=== PATIENT | male | born 1965 | race Caucasian/White ===

== ENCOUNTER → 2017-11-24 | Outpatient (REF) ==
[~2017-11-24] MED LIST: NO HOME MEDICATIONS; NORCO 325 MG-51 TAB PO
== END ==
LOC: ZLAB.WCH 08:55
DX: Z01.89 Encounter for other specified special examinations (principal)

== ENCOUNTER → 2021-10-05 | Outpatient (CLI) | payer OTHER | LOC: COL.RAD 09:55 | DX: M25.512 Pain in left shoulder (principal); M47.816 Spondylosis without myelopathy or radiculopathy, lumbar region ==

== ENCOUNTER 2023-12-14 14:57 | Inpatient (IN) | payer MEDICAID ==
[~2023-12-14] VITALS: Ht 167.6 cm; Wt 107.5 kg
[2023-12-14 17:00] VITALS: BP_SYST 137
[2023-12-14] MEDS ORDERED: NORVASC2.5 MG PO (17:18)
[2023-12-14] MEDS ORDERED: ZESTRIL 20MG TA20 MG PO (17:19)
[2023-12-14] MEDS ORDERED: LIPITOR20 MG PO (17:19)
[2023-12-14] MEDS ORDERED: LOPRESSOR 225 MG/TAB PO (17:20)
[2023-12-14] MEDS ORDERED: HCTZ12.5TAB PO (17:20)
[2023-12-14] MEDS ORDERED: TYLENOL 500MG500 MG PO (17:21)
[2023-12-14 17:30] VITALS: BP 137/69; PULSE 92; TEMP 98.2
--- NOTE | 2023-12-14 17:53 | NUR ---
PT PRESENTS FROM [facility] FOR MULTIPLE BILATERAL LEG WOUNDS AND SEPSIS. BILATERAL LOWER EXTREMETIES ARE RED AND HAVE +3 PITTING EDEMA FROM THE FEET TO THE KNEES. THE RT FOOT HAS MULTIPLE BIG BLISTERERS- GREAT TOE HAS LARGE RUPTURED WHEEPING BLISTER, 2ND TOE HAS RUPTURED WHEEPING BLISTER. LT FOOT- GREAT TOE IS BLUE/PURPLE W/ GROSS SWELLING AND BLISTER, 2ND&3RD TOES HAVE BLISTERS ENGULFING THE TOES, LARGE BLISTER BELOW 3RD&4TH TOES. REDNESS TO TOPS OF BILATERAL FT. RT DORSAL CALF- LARGELY COVERED W/ PURPLE/BLACK AREA THAT HAS RED OPEN WHEEPING EDGES AND SCATTERED BLISTERS AROUND THE OUTSIDE. RASH PRESENT TO BILATERAL ARMPITS BOTTOM IS INTACT BUT REDDEDNED TO BILATERAL BUTTOCKS
[2023-12-14 19:03] VITALS: BP 111/75; PULSE 129; TEMP 101
[2023-12-14] MEDS ORDERED: Ondansetron 4 MG/2 ML VIAL IV PRN (19:15)
[2023-12-14] MEDS ORDERED: hydrALAZINE 20 MG/ML 1 ML VIAL IV PRN (19:15)
[2023-12-14] MEDS ORDERED: NS 1,000 ML IV SCH (19:15)
[2023-12-14] MEDS ORDERED: Acetaminophen 500 MG TAB PO PRN (19:15)
[2023-12-14] MEDS ORDERED: Heparin 5,000 UNITS/ML 1 ML VIAL SQ SCH (19:22)
[2023-12-14] MEDS ORDERED: Nicotine 21 MG DAILY PATCH TD SCH (19:23)
[2023-12-14] MEDS ORDERED: Vancomycin 1.5 GM,Special Dose/Pharmacy Prepared 1.5 GM in NS 250 ML IV SCH (20:00)
[2023-12-14] MEDS ORDERED: cefTRIAXone 2 G in Water For Injection,Sterile 20 ML IV SCH (20:00)
[2023-12-14] MEDS ORDERED: oxyCODONE 5 MG TAB PO PRN (20:15)
[2023-12-14 20:54] LABS: BASO % 0.2 % (0.0-2.0); EOS % 0.1 % (0.0-4.0); GRAN # 13.9 K/mm3 (1.4-6.5); GRAN % 84.7 % (42.2-75.2); HEMOGLOBIN 11.5 g/dl (13.5-18.0); LYMPH # 0.9 K/mm3 (1.2-3.4); LYMPH % 5.7 % (20.0-51.0); MEAN CELL VOLUME 92 fl (80.0-100.0); MEAN CORPUSCULAR HEMOGLOBIN 31 pg (27-31); MEAN CORPUSCULAR HGB CONC 34 g/dl (33.0-37.0); MEAN PLATELET VOLUME 9.1 fl (7.4-10.4); MONO # 1.4 K/mm3 (0.1-0.6); MONO % 8.7 % (1.7-9.3); PLATELET COUNT 400 K/mm3 (130-400); REDCELL DISTRIBUTION WIDTH-CV 14.3 % (11.5-14.5)
[2023-12-14 21:00] VITALS: BP_SYST 111
[2023-12-14] MEDS ORDERED: Melatonin 3 MG TAB PO SCH (21:00)
[2023-12-14 21:17] LABS: ALBUMIN 2.4 gm/dL (3.5-5.0); BILIRUBIN,TOTAL 0.6 mg/dL (0.2-1.2); C-REACTIVE PROTEIN 23.12 mg/dL (0.00-0.50); CALCIUM 9.3 mg/dL (8.4-10.2); CREATININE, serum 1.96 mg/dL (0.72-1.25); PHOSPHOROUS 1.9 mg/dL (2.3-4.7); POTASSIUM 4.1 mmol/L (3.5-4.5); TOTAL PROTEIN 6.6 gm/dL (6.2-8.1)
[2023-12-14 21:26] LABS: HEMATOCRIT 34.1 % (42.0-52.0)
[2023-12-14 23:30] VITALS: BP 91/59; PULSE 125; TEMP 100.9
[2023-12-14 23:59] VITALS: BP 100/59; PULSE 122; TEMP 99.2
[2023-12-15] VITALS (12 sets, daily range): BP systolic 100–149; BP diastolic 61–88; PULSE 94–119; TEMP 98–99
--- NOTE | 2023-12-15 04:22 | NUR ---
NURSING SHIFT ASSESSMENT COMPLETED. THE PATIENT WAS ALERT AND ORIENTED UPON ASSESSMENT. THE PATIENT HAS BILATERAL LE EDEMA, WITH DARK PURPLE IN COLOR BLISTERS. FEET INCLUDED. RIGHT POSTERIOR CALF IS MISSING THE TOP LAYER OF SKIN PER THE PATIENT A LARGE BLISTER WAS THERE, BUT THE PATIENT PULLED OFF THE SKIN AFTER THE GIANT BLISTER OPENED UP. THE PLAN OF CARE AND EVENING MEDICATIONS TO INCLUDE ANTIBIOTICS WERE REVIEWED. QUESTIONS AND CONCERNS WERE ADDRESSED. CALL LIGHT AND PERSONAL BELONGINGS WITHIN REACH.
[2023-12-15 07:54] LABS: ALBUMIN 2.3 gm/dL (3.5-5.0); BILIRUBIN,TOTAL 0.6 mg/dL (0.2-1.2); CALCIUM 9.1 mg/dL (8.4-10.2); CREATININE, serum 1.74 mg/dL (0.72-1.25); TOTAL PROTEIN 6.4 gm/dL (6.2-8.1)
[2023-12-15 07:55] LABS: BASO % 0.3 % (0.0-2.0); EOS % 0.1 % (0.0-4.0); GRAN % 84.2 % (42.2-75.2); HEMATOCRIT 38.6 % (42.0-52.0); HEMOGLOBIN 12.2 g/dl (13.5-18.0); LYMPH % 6.7 % (20.0-51.0); MEAN CORPUSCULAR HEMOGLOBIN 31 pg (27-31); MEAN CORPUSCULAR HGB CONC 32 g/dl (33.0-37.0); MEAN PLATELET VOLUME 9.5 fl (7.4-10.4); MONO # 1.3 K/mm3 (0.1-0.6); MONO % 8.1 % (1.7-9.3); PLATELET COUNT 417 K/mm3 (130-400); RED BLOOD COUNT 3.97 M/mm3 (4.20-5.60); REDCELL DISTRIBUTION WIDTH-CV 14.4 % (11.5-14.5)
[2023-12-15 07:56] LABS: MEAN CELL VOLUME 97 fl (80.0-100.0)
[2023-12-15] MEDS ORDERED: PRINZIDE 12.5 M1 TA1 PO (10:23)
[2023-12-15] MEDS ORDERED: Cefepime 1 G in Water For Injection,Sterile 10 ML IV SCH (12:00)
--- NOTE | 2023-12-15 14:37 | NUR ---
MALINI viewed a PT note of patient needing a FWW. MALINI confirmed with [facility] who confirms patient's insurance would cover this. MALINI emailed DME order for SWW. SW was informed patient will be staying for a few more days.
--- NOTE | 2023-12-15 15:20 | NUR ---
MALINI Villeda identified self as SW Student and completed intake with patient at bedside. Patient lives alone in [place], [place]. He stated that his sister Trisha Leslie(ph#[phone]) would be a good point of contact. Patient stated that his sister lives a couple miles away from him. Patient sees Dr. Marley Palmer for primary care in [place]. Patient obtains medications from [facility] and stated that he has not had any issues with affording medications. Patient stated that he is independent with ADLs and utilizes a cane. Patient stated that he thinks he would have a reliable form of transportation if needed. Patient stated that he does not currently have a DPOA-HC but is interested in completing one. SW Student assisted patient with completing form. Patient appointed his sister Trisha Leslie as his agent. MALINI Student made copies of form and returned orginal and a copy to patient. Copy also put into patient's chart. MALINI Villeda discussed PT recommendation for SNF stay at time of discharge. Patient stated that he would be fine with referrals going to [facility] and local SNF's in [place]. MALINI Villeda called patient's sister Trisha and informed her that patient appointed her his DPOA-HC. She stated that she was unaware that patient was currently admitted, as she had not been in contact with him for awhile. She confirmed that patient should have transportation if any follow up appointments would be needed. Trisha stated that she may try come and visit tomorrow. MALINI Villeda reviewed patient's insurance and noted that patient only has Medicaid [employer]. MALINI Villeda informed patient that a SNF stay would not be covered by Medicaid. MALINI Villeda contacted [facility] (PH#[phone]) to see if they accept Medicaid as a payer source. MALINI Student was informed that they do not. MALINI Student contacted [facility] (PH#[phone]) to see if they would take Medicaid as a payer source. MALINI Student was informed that they could possibly accept for [facility] wound care. MALINI Student faxed referral to [facility] ( ). MALINI Villeda discussed the option of outpatient PT with [facility] with patient at bedside. Patient was agreeable to this. MALINI Villeda discussed PT recommendation of FWW. Patient stated that this is something he would be interested in. Paving Stone Installer Riki faxed DME referral to [facility]. SW Student contacted [facility] to follow up on referral. SW Student was informed that the clinical regional transportation manager had not reviewed referral yet. SW Student was informed that the clinical regional transportation manager would call back once referral was reviewed. [facility] nurse questioned if patient would be on any infusions/antibiotics at time of discharge. SW Student informed that patient would be admitted for atleast a couple days, and updates could be provided each day. Social Amara Lyn received call from [facility] questioning the frequency of wound care. They stated that they could possibly accept if wound care was not needed everyday. Unit nurse informed [facility] that they usually wait until Wound care consults to determine this. [facility] was informed that updates would be faxed until time of discharge. Social Amara Lyn faxed outpatient PT referral to [facility]. Discharge Plan: TBD
--- NOTE | 2023-12-15 16:25 | NUR ---
plant worker recieved a call from [facility] re:outpatient therapy. They questioned why pt is not referred for [facility]. MALINI reports she will follow up on this, but Director Marley spoke with Billie there. MALINI provided pt has Medicaid and would do fpc and outpatient PT. [facility] reports they can accept for therapy, but would like to check in closer to discharge.
[2023-12-16] VITALS (9 sets, daily range): BP systolic 134–162; BP diastolic 78–95; PULSE 113–119; TEMP 98–98.3
--- NOTE | 2023-12-16 02:06 | NUR ---
NURSING SHIFT ASSESSMENT COMPLETED. THE PATIENT WAS ALERT AND ORIENTED UPON ASSESSMENT. THE PATIENT WAS ASSISTED WITH A REPOSITION. THE PATIENT TRIED TO STAND TO SIDE STEP UP TO THE TOP OF THE BED AND COULD NOT. WITH SOME PERSISTENCE THE PATIENT WAS ABLE TO SCOOT HIMSELF UP IN BED FROM THE DANGLE POSITION. THE PATIENT WAS RATING HIS RIGHT LOWER EXTREMITY PAIN 4/10 AND DENIED NEEDING AN INTERVENTION AT THIS TIME. THE PATIENTS LOWER EXTREMITIES REMAIN RED, PURPLE AND EDEMATOUS WITH BLISTERS NOTED. OOZING IS NOTED FROM THE RIGHT CALF WHICH HAD BEEN A VERY LARGE BLISTER AND THE PATIENT REMOVED THE SKIN. THE PLAN OF CARE AND EVENING MEDICATIONS REVIEWED. CALL LIGHT WITHIN REACH, BED IN LOW POSITION, PERSONAL BELONGINGS WITHIN REACH AND BED ALARM ON.
--- NOTE | 2023-12-16 07:27 | NUR ---
Bedside report received from EVELIN Elder. Pt is currently sleeping in bed with no complaints. NS infusing into Rt AC at 100 mL/hr with no complications. Call light within reach.
[2023-12-16 09:04] LABS: BASO % 0.3 % (0.0-2.0); EOS # 0.1 K/mm3 (0.0-0.7); EOS % 0.4 % (0.0-4.0); GRAN # 11.4 K/mm3 (1.4-6.5); GRAN % 82.7 % (42.2-75.2); HEMATOCRIT 35.7 % (42.0-52.0); HEMOGLOBIN 11.1 g/dl (13.5-18.0); LYMPH # 1.3 K/mm3 (1.2-3.4); LYMPH % 9.2 % (20.0-51.0); MEAN CELL VOLUME 97 fl (80.0-100.0); MEAN CORPUSCULAR HEMOGLOBIN 30 pg (27-31); MEAN CORPUSCULAR HGB CONC 31 g/dl (33.0-37.0); MEAN PLATELET VOLUME 9.4 fl (7.4-10.4); MONO # 0.9 K/mm3 (0.1-0.6); MONO % 6.7 % (1.7-9.3); PLATELET COUNT 447 K/mm3 (130-400); RED BLOOD COUNT 3.68 M/mm3 (4.20-5.60); REDCELL DISTRIBUTION WIDTH-CV 14.6 % (11.5-14.5)
[2023-12-16 09:23] LABS: ALBUMIN 2.1 gm/dL (3.5-5.0); BILIRUBIN,TOTAL 0.3 mg/dL (0.2-1.2); CREATININE, serum 1.29 mg/dL (0.72-1.25); POTASSIUM 4.1 mmol/L (3.5-4.5); TOTAL PROTEIN 6.2 gm/dL (6.2-8.1)
--- NOTE | 2023-12-16 12:10 | NUR ---
Data: Patient accepted Test Equipment Mechanic visit offered to him during Test Equipment Mechanic rounds. Test Equipment Mechanic and Patient had a conversation about several topics including road construction and wildlife. Assessment: Patient feels confined by the issues in his feet and legs. He is apprehensive, but hopeful about where he might live when he leaves the hospital. Plan of Care: Test Equipment Mechanic opened the window blinds enough for him to see outside; provided supportive listening and prayer. Patient thanked Test Equipment Mechanic for the visit.
--- NOTE | 2023-12-16 13:29 | NUR ---
brick kiln worker sent updates to [facility].
[2023-12-16] MEDS ORDERED: Cefepime 1 G in Water For Injection,Sterile 10 ML IV SCH (18:00)
[2023-12-17] VITALS (14 sets, daily range): BP systolic 121–160; BP diastolic 71–105; PULSE 112–124; TEMP 98–98.5
--- NOTE | 2023-12-17 01:06 | NUR ---
patient lying in bed, alert and oriented x4. pt denies chest pain and shortness of breath. IV in RAC and LW are patent, sites are clean dry and intact with NS running at 100ml/hr in the LW. BLE +1 to 2 pitting edema with fluid filled blueish/purple blisters on toes, necrotic tissue on base of toes, large right calf open necrotic tissue with surrounding redness that is blanchable, ordorous drainage is bloody and yellowish, wounds open to air. small scattered general bruising noted on extremities. nicotine patch noted on right upper arm. pt has no further needs, questions or concerns. fall precautions in place, call light within reach. will continue to monitor.
--- NOTE | 2023-12-17 08:23 | NUR ---
[facility] Jacey reported to this nurse that pt BP was 148/105. This nurse went to assess pt and recheck BP. Recheck BP was 160/103. This nurse notified charge nurse Zuri. EVELIN Keating administered PRN Hydralazine as ordered. Call light within reach of pt.
[2023-12-17 10:39] LABS: BASO % 0.3 % (0.0-2.0); EOS # 0.1 K/mm3 (0.0-0.7); EOS % 0.6 % (0.0-4.0); GRAN # 11.7 K/mm3 (1.4-6.5); HEMOGLOBIN 11.2 g/dl (13.5-18.0); LYMPH # 1.2 K/mm3 (1.2-3.4); LYMPH % 8.6 % (20.0-51.0); MEAN CELL VOLUME 94 fl (80.0-100.0); MEAN CORPUSCULAR HEMOGLOBIN 31 pg (27-31); MEAN CORPUSCULAR HGB CONC 33 g/dl (33.0-37.0); MEAN PLATELET VOLUME 9.2 fl (7.4-10.4); MONO # 0.7 K/mm3 (0.1-0.6); MONO % 5.3 % (1.7-9.3); PLATELET COUNT 464 K/mm3 (130-400); RED BLOOD COUNT 3.61 M/mm3 (4.20-5.60); REDCELL DISTRIBUTION WIDTH-CV 14.5 % (11.5-14.5)
[2023-12-17 10:48] LABS: HEMATOCRIT 33.9 % (42.0-52.0)
[2023-12-17 11:05] LABS: BILIRUBIN,TOTAL 0.3 mg/dL (0.2-1.2); CALCIUM 9.3 mg/dL (8.4-10.2); CREATININE, serum 1.19 mg/dL (0.72-1.25); POTASSIUM 4.1 mmol/L (3.5-4.5); TOTAL PROTEIN 6.5 gm/dL (6.2-8.1)
--- NOTE | 2023-12-17 22:08 | NUR ---
patient lying in bed alert and oriented x4. pt denies chest pain and shortness of breath. IV in LH is patent, site is clean dry and intact. BLE +2 pitting edema, blanchable redness, closed fluid filled blisters on toes, nectrotic and white excar on bottom of feet, toes, heels. large necrotic area with white escar and redness surrounding noted on right heel. odorous drainage, noted, site open to air at this time. left upper arm nicotin epath noted. pt has no further needs, questions, or concerns. fall rpecations in place, call light within reach. will continue to monitor.
[2023-12-18] VITALS (12 sets, daily range): BP systolic 133–153; BP diastolic 78–93; PULSE 110–115; TEMP 98–99.2
[2023-12-18 06:36] LABS: HEMOGLOBIN 11.1 g/dl (13.5-18.0); MEAN CELL VOLUME 96 fl (80.0-100.0); MEAN CORPUSCULAR HEMOGLOBIN 30 pg (27-31); MEAN CORPUSCULAR HGB CONC 32 g/dl (33.0-37.0); MEAN PLATELET VOLUME 9.1 fl (7.4-10.4); PLATELET COUNT 467 K/mm3 (130-400); RED BLOOD COUNT 3.66 M/mm3 (4.20-5.60); REDCELL DISTRIBUTION WIDTH-CV 14.6 % (11.5-14.5)
[2023-12-18 06:56] LABS: BILIRUBIN,TOTAL 0.3 mg/dL (0.2-1.2); CALCIUM 9.4 mg/dL (8.4-10.2); CREATININE, serum 1.22 mg/dL (0.72-1.25); TOTAL PROTEIN 6.4 gm/dL (6.2-8.1)
[2023-12-18 07:17] LABS: BAND 6 % (0-10); BASOPHIL 1 % (0-2); EOSINOPHIL 2 % (0-4); LYMPHOCYTE 19 % (20.0-51.0); NEUTROPHILS 67 % (42.0-75.2); PLATELET ESTIMATE INCREASED (NORMAL)
--- NOTE | 2023-12-18 14:48 | NUR ---
Farmworker Cranberry attended clinical rounds with the team and Hospitalist recommends placement. [facility] as [facility] the payer source. MALINI met with patient who is agreeable to this. MALINI contacted Dai at [facility] and gave referral.
--- NOTE | 2023-12-18 21:00 | NUR ---
PT LAYING IN BED UPON ENTERING. ASSESSMENT DONE, MEDS GIVEN PER ORDER. PT DENIES PAIN AT THIS TIME. INT TO LEFT HAND FLUSHES WELL WITHOUT COMPLICATIONS. ALL LUNG SOUNDS DIMINSHED. PT HAS A NICOTINE PATCH TO RIGHT UPPER ARM. BACK OF RIGHT CALF IS BLACK SURROUNDED BY PINK SKIN THAT IS NOT INTACT. TOES ON RIGHT AND LEFT FOOT ARE BLACK AND COVERED WITH SCATTERED BLISTERS, MOST ARE INTACT. BALL OF RIGHT FOOT IS BLACK, SKIN IS INTACT. SMALL AMOUNT OF PURULENT DRAINGED FROM RIGHT CALF, CHUX CHANGED. PT DENIES NEEDS AT THIS TIME. BED IN LOWEST POSITION, CALL LIGHT IN REACH, BED ALARM ON
[2023-12-19] VITALS (12 sets, daily range): BP systolic 128–157; BP diastolic 78–99; PULSE 106–119; TEMP 98.1–99.2
--- NOTE | 2023-12-19 05:55 | NUR ---
PT RESTING WITH EYES CLOSED UPON ENTERING, RISE AND FALL OF CHEST NOTED. PT AWAKE TO VOICE. MEDS GIVEN PER ORDER. PT HAS A RED DISCOLORATION TO LEFT HAND, PT HAS SCATTERED REDNESS ON BODY AND WHEN ASKED TELLS THIS NURSE THAT IT HAS BEEN LIKE THAT. NO SIGNS ON INFILTRATION NOTED. PT HAD AN UNEVENTFUL NIGHT AND DENIES NEEDS AT THIS TIME. BED IN LOWEST POSITION, CALL LIGHT IN REACH, BED ALARM ON.
--- NOTE | 2023-12-19 07:10 | NUR ---
REPORT GIVEN TO CHRIS WALKER RN
[2023-12-19 07:23] LABS: HEMOGLOBIN 11.3 g/dl (13.5-18.0); MEAN CELL VOLUME 95 fl (80.0-100.0); MEAN CORPUSCULAR HEMOGLOBIN 30 pg (27-31); MEAN CORPUSCULAR HGB CONC 32 g/dl (33.0-37.0); MEAN PLATELET VOLUME 8.7 fl (7.4-10.4); PLATELET COUNT 476 K/mm3 (130-400); RED BLOOD COUNT 3.79 M/mm3 (4.20-5.60); REDCELL DISTRIBUTION WIDTH-CV 14.5 % (11.5-14.5)
[2023-12-19 07:25] LABS: HEMATOCRIT 35.9 % (42.0-52.0)
[2023-12-19 07:39] LABS: ALBUMIN 2.1 gm/dL (3.5-5.0); BILIRUBIN,TOTAL 0.3 mg/dL (0.2-1.2); CALCIUM 9.4 mg/dL (8.4-10.2); CREATININE, serum 1.18 mg/dL (0.72-1.25); TOTAL PROTEIN 6.7 gm/dL (6.2-8.1)
[2023-12-19 08:05] LABS: BAND 7 % (0-10); EOSINOPHIL 1 % (0-4); LYMPHOCYTE 15 % (20.0-51.0); METAMYELOCYTE 1 % (0-0); NEUTROPHILS 67 % (42.0-75.2)
[2023-12-19 08:06] LABS: PLATELET ESTIMATE INCREASED (NORMAL)
--- NOTE | 2023-12-19 10:52 | NUR ---
Patient alert and oriented x4. Shift assessment complete. Lung sounds diminished. HR regular. New nicotine patch placed to left upper arm, old one removed. Wounds to bilateral toes dry, wound to right calf draining yellow fluid. Patient complains of pain, PRN Tylenol administered. Wound care called for consult. Patient resting in bed with call light in reach, all needs met at this time.
[2023-12-19 14:02] LABS: CHOLESTEROL RISK RATIO 6.3
--- NOTE | 2023-12-19 19:28 | NUR ---
Patient remains stable, resting in bed with call light in reach. All needs met at this time. Jose administered with orange juice. Patient voices no concerns.
--- NOTE | 2023-12-19 20:05 | NUR ---
PT LAYING IN BED UPON ENTERING. ASSESSMENT DONE, MEDS GIVEN PER ORDER. LEFT HAND INT LEAKING AND PT COMPLAINING OF PAIN WHEN FLUSHING. PT COMPLAINING OR RIGHT CALF PAIN AND GIVEN PRN. SMALL AMOUNT OF DRAINAGE FROM BOTTOM OF RIGHT CALF ON CHUX, CHUX CHANGED. NICOTINE PATCH TO LEFT UPPER ARM. NO CHANGE IN BILATERAL LOWER EXTREMITY WOUNDS: SEE 12/18/23 ASSESSMENT. PT DENIES NEEDS AT THIS TIME. BED IN LOWEST POSITION, CALL LIGHT IN REACH, BED ALARM ON
--- NOTE | 2023-12-19 23:00 | NUR ---
PT REPORTS CONTINUED RIGHT CALF PAIN, PT GIVEN PRN TYLENOL
[2023-12-20] VITALS (11 sets, daily range): BP systolic 120–152; BP diastolic 74–969; PULSE 85–118; TEMP 97.7–98.5
--- NOTE | 2023-12-20 00:30 | NUR ---
NEW INT TO RIGHT FOREARM PLACED. MEDS GIVEN PER ORDER.
--- NOTE | 2023-12-20 06:21 | NUR ---
PT HAD AN UNEVENTFUL NIGHT, MEDS GIVEN PER ORDER. PT DENIES PAIN OR NEEDS AT THIS TIME. BED IN LOWEST POSITION, CALL LIGHT IN REACH, BED ALARM ON
[2023-12-20 06:47] LABS: HEMATOCRIT 38.3 % (42.0-52.0); HEMOGLOBIN 12.2 g/dl (13.5-18.0); MEAN CELL VOLUME 95 fl (80.0-100.0); MEAN CORPUSCULAR HEMOGLOBIN 30 pg (27-31); MEAN CORPUSCULAR HGB CONC 32 g/dl (33.0-37.0); MEAN PLATELET VOLUME 8.7 fl (7.4-10.4); PLATELET COUNT 499 K/mm3 (130-400); RED BLOOD COUNT 4.04 M/mm3 (4.20-5.60); REDCELL DISTRIBUTION WIDTH-CV 14.4 % (11.5-14.5)
[2023-12-20 07:02] LABS: CALCIUM 9.8 mg/dL (8.4-10.2); CREATININE, serum 1.29 mg/dL (0.72-1.25); POTASSIUM 4.3 mmol/L (3.5-4.5)
--- NOTE | 2023-12-20 07:20 | NUR ---
REPORT GIVEN TO EVELIN CODY
[2023-12-20 07:42] LABS: BAND 9 % (0-10); LYMPHOCYTE 13 % (20.0-51.0); NEUTROPHILS 72 % (42.0-75.2); PLATELET ESTIMATE INCREASED (NORMAL)
[2023-12-20] MEDS ORDERED: amLODIPine 5 MG TAB PO SCH (09:00)
[2023-12-20] MEDS ORDERED: Lisinopril 20 MG,hydroCHLOROthiazide 12.5 MG PO SCH (09:00)
[2023-12-20] MEDS ORDERED: Metoprolol Tartrate 25 MG TAB PO SCH (09:00)
--- NOTE | 2023-12-20 10:52 | NUR ---
PT RESTING IN BED WITH NO PAIN AT THIS TIME. ALL WOUNDS LEFT OPEN TO AIR BUT ORDERS FROM WOUND CARE TO COME. RIGHT DALF WOUND WITH YELLOW PURULENT DRAINAGE. BLISTERS TO BILATERAL TOES CLOSED AT THIS TIME. ODOR PRESESNT. PT ABLE TO AMBULATE UNSTEADY BUT PT STATES IT IS PAINFUL. WILL CONTINUE TO MONITOR.
--- NOTE | 2023-12-20 15:50 | NUR ---
[facility] declines patient.
--- NOTE | 2023-12-20 16:34 | NUR ---
crop or grain farmworker [facility]. Mimi declines the referral to limited medical diagnoses and being unable to tolerate 3/hrs a day of therapy. SW informed Director Marley Vallejo. SW asked IPR Director Esperanza to review patient. SW noted [facility] declined pt per MALINI Jeffery. SW attempted to call PT Shane and PT Sahara to discuss reccomendations for patient at discharge.
[2023-12-20] MEDS ORDERED: Atorvastatin 20 MG TAB PO SCH (21:00)
--- NOTE | 2023-12-20 21:00 | NUR ---
UPON SHIFT ASSESSMENT, PELON WAS IN BED AWAKE. HE IS AXO X 4 AND PLESANT. HE HAS PROFOUND NECROTIC TISSURE IN BLLE WITH BLISTERING AND EVISERATED TISSUE. PER WOUND CARE INSTRUCTIONS BOOT WAS PLACED ON LT HEELS AND EXTREMITIES REMAIN IN FLOAT POSITION. PEDAL PULSE AUDIBLE WITH DOPPLER, VS WNL AND PATIENT C/O OF NO PAIN OR NEEDS AT THIS TIME, BED ALARM ON AND CALL LIGHT WITHIN REACH.
[2023-12-21] VITALS (14 sets, daily range): BP systolic 102–142; BP diastolic 65–83; PULSE 77–95; TEMP 98–98.6
--- NOTE | 2023-12-21 04:12 | NUR ---
ROUNDED ON PATIENT AND UPON ENTERING ROOM, NOTED PATIENT HAD KICKED HEEL BOOTS OFF AND CUSHIONS FLOATING HEELS. CHANGED LUDY PAD EXAMINED [id number] REAPPLIED BOOTS AND HEEL PROTECTORS. PATIENT STATES NO NEEDS AT THIS TIME
--- NOTE | 2023-12-21 06:35 | NUR ---
NO EMERGENT STATUS CHANGES FOR PELON THROUGHOUT THE EVENING SHIFT. VS WNL, BED ALARM ON.
--- NOTE | 2023-12-21 09:13 | NUR ---
PATIENT LAYING IN BED UPON WALKING IN THE ROOM MORNING.SHIFT ASSESSMENT PERFORMED.VERBALISED HE IS NOT IN ANY PAIN OR ANY CONCERNS.TOLERATED BREAKAST WELL.INT TO RIGHT FORARM NO REDNESS SWELLING OR DRAINAGE.CALL LIGHT IN REACH.
--- NOTE | 2023-12-21 09:23 | NUR ---
Patient alert and oriented x4. Resting in bed, continues to not tolerate bearing weight on feet. Using urinal, urine is yellow/clear. Dressings changed with nursing program director to right calf and heel per orders, draining bloody/yellow, mild odor noted. Dressing to left heel CDI. Toes with deep tissue injury are CDI and open to air per orders. Patient has pain to edges of calf wound surrounding eschar where wound is healing. Call light within reach, all needs met at this time.
--- NOTE | 2023-12-21 09:37 | NUR ---
DURING ASSESSMENT, NOTED TWO NICOTINE PATCHES, ONE ON HIS UPPER LEFT ARM WITH TEGADERM ON IT AND THE OTHER WAS UNDER HIS LEFT THIGH.REMOVED BOTH AND NEW ONE APPLIED AT 0900 PER ORDERS.
--- NOTE | 2023-12-21 13:00 | NUR ---
Bed bath provided to patient on bedside commode. Hair washed and linens changed. New gown provided. Patient tolerated bearing weight with post-op shoes during pivot transfer, slightly unsteady but able to stabilize self. Denies pain at this time. Large semi-formed BM noted.
--- NOTE | 2023-12-21 13:20 | NUR ---
PATIENT TOLERATED LUNCH WELL.[facility], BEDBATH PROVIDED.HE LAYING IN BED,NO CONCERNS AND CALL LIGHT PUT WITHIN REACH.
--- NOTE | 2023-12-21 13:56 | NUR ---
Fingernail Former spoke with Esperanza, IPR Director who declined referral at this time. SW met with patient to discuss additional referrals. Patient is agreeable to have SW send a referral out to area nursing [facility]. SW faxed referral to KATELYN Ye, Christa, Shahzad Flores, Shahzad Trevino, [facility], and [facility].
--- NOTE | 2023-12-21 15:03 | NUR ---
Christa declined referral.
--- NOTE | 2023-12-21 18:02 | NUR ---
Patient remains stable. Voices no concerns at this time. Family at bedside. Heels floated and call light within reach.
--- NOTE | 2023-12-21 20:58 | NUR ---
UPON SHIFT ASSESSMENT, PELON'S RR WAS 24 AND O2 SAT WAS 90 ON RA. LUNG SOUNDS ARE CLEAR AND PATIENT DENIES CHEST PAIN AND SOA. PEDAL PULSES AUDIBLE WITH DOPPLER. HE IS AXO X 4. FURTHER ASSESSMENT QUESTIONS REVEALED PELON IS SOMEWHAT ANXIOUS ABOUT THE POSSIBILITY OF TOE AMPUTATION. HE STATED DOCTOR VISITED BEDSIDE AND CONSULTED WITH HIM ABOUT NEED FOR RESECTION. THIS NURSE SUGGESTEED READING MATERIAL AND PELON AGREED AND STATED HE WOULD LIKE INFORMATION SPECIFICALLY ON, "HOW TO TAKE CARE OF MYSELF IF I DO GET THEM AMPUTATED." WILL PROVIDE PATIENT WITH EDUCATION MAETRIAL. PELON DENIES ANY OTHER NEEDS OR PAIN AT THIS TIME.
[2023-12-22] VITALS (11 sets, daily range): BP systolic 102–144; BP diastolic 49–85; PULSE 86–104; TEMP 98–98.2
--- NOTE | 2023-12-22 02:00 | NUR ---
ROUNDING ON PATIENT-PELON KICKED BOTH BOOTS OFF WHILE SLEEPING. SCANT SEROSANGEOUS DRAINAGE NOTED ON LINENS, REAPPLIED MEPIPLEX TO LT HEEL.
[2023-12-22] MEDS ORDERED: diphenhydrAMINE 25 MG CAP PO PRN (02:30)
--- NOTE | 2023-12-22 03:11 | NUR ---
PATIENT TRENDING LOW 02 SAT 90%. PLACED ON 1L NC. O2 SAT -94%
--- NOTE | 2023-12-22 05:20 | NUR ---
O2 RECHECK- 95% ON 1L NC PULSE 90
--- NOTE | 2023-12-22 08:32 | NUR ---
PATIENT LAYING IN BED UPON WALKING IN THE ROOM THIS MORNING ,STATED HE DID NOT SLEEP WELL HE WAS UNCOMFORTABLE.SPO2 AT 93% AND O2 RUNNING VIA NASAL CANNULA AT 1L.MEDS ADMINISTERED PER ORDERS.EXPRESSES NO CONCERNS OR PAIN AT THE MOMENT.INT ON RIGHT FOREARM PATENT,NO REDNESS, SWELLING NOTED.
[2023-12-22] MEDS ORDERED: Ciprofloxacin 500 MG TAB PO SCH (09:30)
--- NOTE | 2023-12-22 10:39 | NUR ---
PATIENT RESTING IN BED UPON ENTERING ROOM. SHIFT ASSESSMENT COMPLETED. STUDENT NURSE, JASON, PASSED MORNING MEDICATIONS. PATIENT DENIES ANY PAIN THIS MORNING. WAS PLACED ON O2 VIA NC OVERNIGHT, THIS WAS REMOVED. BED ALARMS IN PLACE, CALL LIGHT WITHIN REACH, WILL CONTINUE TO MONITOR.
--- NOTE | 2023-12-22 11:30 | NUR ---
DRESSING CHANGES COMPLETED AT THIS TIME. WOUND CARE INSTRUCTIONS FOLLOWED INSTRUCTED ON PRINTED SHEET. HEEL PROTECTORS IN PLACE. HEELS ELEVATED WITH PILLOWS. JASON, STUDENT RN, ASSISTED WITH DRESSING CHANGE.
--- NOTE | 2023-12-22 16:06 | NUR ---
IDALMIS FROM PHYSICAL THERAPY NOTIFIED THIS RN THAT AFTER GETTING PATIENT UP TO AMBULATE SHE NOTICED HIS R DORSAL FOOT WAS BLEEDING FROM AN OPEN WOUND. PRESSURE HELD TO AREA UNTIL BLEEDING STOPPED, WOUND CLEANED WITH STERILE WATER AND GUAZE. THIS RN LEFT WOUND OPEN TO AIR. CONTINUING TO MONITOR FOR BLEEDING.
--- NOTE | 2023-12-22 16:27 | NUR ---
Shahzad Trevino, [facility]N and [facility] declined referral. MALINI contacted Lianne at [facility] who is having her team review. Lianne would like to visit patient in person before considering. MALINI faxed additional referrals to [facility] and [facility].
[2023-12-23] VITALS (11 sets, daily range): BP systolic 100–117; BP diastolic 63–76; PULSE 80–91; TEMP 97.7–98.4
--- NOTE | 2023-12-23 00:06 | NUR ---
CARE ASSUMED FROM EVELIN CARO
[2023-12-23 08:30] LABS: HEMATOCRIT 37.7 % (42.0-52.0); HEMOGLOBIN 12.1 g/dl (13.5-18.0); MEAN CELL VOLUME 95 fl (80.0-100.0); MEAN CORPUSCULAR HEMOGLOBIN 30 pg (27-31); MEAN CORPUSCULAR HGB CONC 32 g/dl (33.0-37.0); MEAN PLATELET VOLUME 8.7 fl (7.4-10.4); PLATELET COUNT 544 K/mm3 (130-400); RED BLOOD COUNT 3.98 M/mm3 (4.20-5.60); REDCELL DISTRIBUTION WIDTH-CV 14.3 % (11.5-14.5)
[2023-12-23 08:44] LABS: CALCIUM 9.9 mg/dL (8.4-10.2); CREATININE, serum 1.63 mg/dL (0.72-1.25); POTASSIUM 4.4 mmol/L (3.5-4.5)
[2023-12-23 10:57] LABS: BAND 3 % (0-10); BASOPHIL 2 % (0-2); EOSINOPHIL 1 % (0-4); HYPOCHROMIA 1+; LYMPHOCYTE 15 % (20.0-51.0); METAMYELOCYTE 3 % (0-0); NEUTROPHILS 70 % (42.0-75.2); PLATELET ESTIMATE INCREASED (NORMAL)
--- NOTE | 2023-12-23 11:19 | NUR ---
Patient alert and oriented at baseline. Shift assessment complete this morning. No new variances noted. Toes blisters intact, dressings CDI. Patient complains of pain after PT/OT, PRN Tylenol administered. Patient voices no other concerns at this time, resting in bed with call light in reach.
--- NOTE | 2023-12-23 15:58 | NUR ---
Dressings changed to right heel and calf. Old dressings noted to have yellow drainage with little odor. Left heel dressing CDI. Wounds treated per wound care orders. Bed bath provided and hair washed. Linens and gown changed. Patient voices no concerns at this time. Call light within reach.
--- NOTE | 2023-12-23 19:10 | NUR ---
BEDSIDE SHIFT REPORT RECEIVED FROM CHRIS WALKER RN. PATIENT RESTING IN BED WATCHING TV. PATIENT DENIES NEEDS OR CONCERNS AT THIS TIME.
--- NOTE | 2023-12-23 21:27 | NUR ---
PATIENT RESTING IN BED, WATCHING TV. ALERT AND ORIENTED. SHIFT ASSESSMENT COMPLETE. WOUND TO RIGHT LYNN COVERED WITH GAUZE. CDI. WOUNDS TO BLE ARE OPEN TO AIR, NO DRAINAGE NOTED. HEELS ARE FLOATED WITH BOOTS AND WAFFLE MATTRESS. PAITENT RATES PAIN A 4-5. THIS NURSE ASKED PATIENT IF PATIENT WANTED PAIN MEDICATION. PATIENT DENIED, STATING HE WILL WAIT. DENIES OTHER NEEDS OR CONCERNS AT THIS TIME. WILL MONITOR
[2023-12-24] VITALS (12 sets, daily range): BP systolic 100–149; BP diastolic 69–81; PULSE 82–93; TEMP 97.4–98.5
--- NOTE | 2023-12-24 02:50 | NUR ---
PATIENT COMPLAINING OF SUNG. VSS. PATIENT STATES HE FEELS HIS BLOOD GLUCOSE LEVEL IS LOW AND IS REQUESTING OJ AND SANDWICH. PER DEXCOM, BG IS 72. WILL MONITOR
--- NOTE | 2023-12-24 05:39 | NUR ---
PATIENT RESTING IN BED. PATIENT HAS HAD UNEVENTFUL NIGHT. PATIENT STATES PAIN IS "NOT BAD." THIS NURSE ASKED IF HE NEEDED ANYTHING FOR PAIN, PATIENT DENIED. DENIES FURTHER NEEDS OR CONCERNS AT THIS TIME.
[2023-12-24 06:35] LABS: HEMATOCRIT 37.4 % (42.0-52.0); HEMOGLOBIN 12.2 g/dl (13.5-18.0); MEAN CELL VOLUME 94 fl (80.0-100.0); MEAN CORPUSCULAR HEMOGLOBIN 31 pg (27-31); MEAN CORPUSCULAR HGB CONC 33 g/dl (33.0-37.0); MEAN PLATELET VOLUME 8.5 fl (7.4-10.4); PLATELET COUNT 573 K/mm3 (130-400); RED BLOOD COUNT 3.98 M/mm3 (4.20-5.60); REDCELL DISTRIBUTION WIDTH-CV 14.4 % (11.5-14.5)
[2023-12-24 06:53] LABS: CALCIUM 9.9 mg/dL (8.4-10.2); CREATININE, serum 1.61 mg/dL (0.72-1.25); POTASSIUM 4.3 mmol/L (3.5-4.5)
[2023-12-24 07:24] LABS: BAND 11 % (0-10); EOSINOPHIL 1 % (0-4); HYPOCHROMIA 1+; LYMPHOCYTE 14 % (20.0-51.0); NEUTROPHILS 67 % (42.0-75.2); PLATELET ESTIMATE INCREASED (NORMAL)
--- NOTE | 2023-12-24 08:54 | NUR ---
PATIENT SITTING UP IN BED EATING BREAKFAST UPON ENTERING ROOM. MORNING MEDICATIONS ADMINISTERED. SHIFT ASSESSMENT COMPLETED. PATIENT DENIES ANY PAIN AT THIS TIME. CALL LIGHT WITHIN REACH, BED ALARMS IN PLACE. WILL CONTINUE TO MONITOR.
[2023-12-24] MEDS ORDERED: NS 1,000 ML IV SCH (09:00)
--- NOTE | 2023-12-24 20:00 | NUR ---
PT RESTING IN BED. A&OX4. PLEASANT AND COPPERATIVE. DENIES PAIN. REVIEWED DR PROGRESS NOTES. REVIEWED INSTRUCTION SHEET FOR DRSG CHANGES. ALL DRSG'S INTACT. BILAT MID FOOT TO TOES BLACK. HEEL BLISTERS COVERED WITH MEPILEX. POSTERIOR CALF DRSG INTACT WITH TELFA AND KERLIX. ENC FEET ELEVATION. CALL LIGHT IN REACH. BED ALRM SET.
[2023-12-25] VITALS (11 sets, daily range): BP systolic 101–128; BP diastolic 74–77; PULSE 85–914; TEMP 98.1–98.3
[2023-12-25 06:49] LABS: HEMOGLOBIN 11.5 g/dl (13.5-18.0); MEAN CELL VOLUME 97 fl (80.0-100.0); MEAN CORPUSCULAR HEMOGLOBIN 30 pg (27-31); MEAN CORPUSCULAR HGB CONC 31 g/dl (33.0-37.0); MEAN PLATELET VOLUME 8.9 fl (7.4-10.4); PLATELET COUNT 572 K/mm3 (130-400); RED BLOOD COUNT 3.79 M/mm3 (4.20-5.60); REDCELL DISTRIBUTION WIDTH-CV 14.3 % (11.5-14.5)
[2023-12-25 06:57] LABS: HEMATOCRIT 36.8 % (42.0-52.0)
[2023-12-25 07:12] LABS: CALCIUM 9.4 mg/dL (8.4-10.2); CREATININE, serum 1.71 mg/dL (0.72-1.25); POTASSIUM 4.5 mmol/L (3.5-4.5)
[2023-12-25 07:18] LABS: BAND 3 % (0-10); EOSINOPHIL 1 % (0-4); LYMPHOCYTE 26 % (20.0-51.0); METAMYELOCYTE 1 % (0-0); NEUTROPHILS 60 % (42.0-75.2); PLATELET ESTIMATE INCREASED (NORMAL)
[2023-12-25] MEDS ORDERED: NS 1,000 ML IV SCH (07:30)
--- NOTE | 2023-12-25 09:27 | NUR ---
PATIENT RESTING IN BED UPON ENTERING ROOM. MORNING MEDICATIONS ADMINISTERED. SHIFT ASSESSMENT COMPLETED. IVF INFUSING. BED ALARMS IN PLACE, CALL LIGHT WITHIN REACH. UPDATED ON POC. PATIENT DENIES ANY PAIN. WILL CONTINUE TO MOMITOR.
--- NOTE | 2023-12-25 09:40 | NUR ---
PATIENTS IV WAS LEAKING. NEW SITE STARTED TO R FOREARM.
--- NOTE | 2023-12-25 16:17 | NUR ---
Jewel Bearing Maker met with patient and his sister, Trisha to provide update. SW advised that there are no accepting facilities at this time and that discharge plan will be home with home health and outpatient PT/OT. SW explained the barriers with his insurance in finding placement and patient verbalized understanding. Patient advised they were discussing a possible I&D for the back of his calf. SW attempted to contact Denita at [facility] to provide update but she was out of the office for the afternooon. Discharge Plan: Home with for nursing and outpatient PT/OT
--- NOTE | 2023-12-25 20:00 | NUR ---
UPON SHIFT ASSESSMENT, PELON WAS AWAKE IN BED. BOTH BILATERAL LOWER EXTREMITIES REMAIN PROFOUNDLY NECROTIC AND SOME SKIN IS SLOUGHING OFF ON LT DORSAL ASPECT OF FOOT. HE DENIES PAIN OR NEEDS AT THIS TIME. VS ARE WNL. ORTHO AND WOUND TO CONSULT ABOUT EXTENT OF VIABLE TISSUE REMAINING.
--- NOTE | 2023-12-25 23:00 | NUR ---
ABD DRESSING CHANGED TO RT CALF. SCANT PURLENT DRAINAGE WITH ESCHAR THROUGHOUT.
[2023-12-26] VITALS (12 sets, daily range): BP systolic 108–141; BP diastolic 65–81; PULSE 76–90; TEMP 97.7–98.4
[2023-12-26 07:14] LABS: CALCIUM 9.3 mg/dL (8.4-10.2); CREATININE, serum 1.29 mg/dL (0.72-1.25); POTASSIUM 4.6 mmol/L (3.5-4.5)
--- NOTE | 2023-12-26 09:42 | NUR ---
Patient alert and oriented x4. Shift assessment complete. NS running at 100ml/hr through right forearm IV. Dressings to bilateral lower extremities and heels CDI. Toe wounds intact, continue to be necrotic. Patient voices no concerns at this time. Call light within reach, all needs met at this time.
--- NOTE | 2023-12-26 16:18 | NUR ---
Detonator Assembler Riki faxed clinical updates to [facility]. SW also contacted [facility]ita [facility] to give update on discharge planning.
--- NOTE | 2023-12-26 18:03 | NUR ---
Patient remains stable. Complained of pain earlier this shift after working with PT/OT. Blisters to toes noted to have increased bloody drainage following PT/OT due to shoes. PRN Tylenol administered. Dressings changed to right calf and right heel, yellow/brown drainage noted. Toe blisters cleaned per orders. Surgical consult complete, Dr. Simon states no surgical interventions required at this time. Patient voices no concerns. All needs met at this time.
--- NOTE | 2023-12-26 20:00 | NUR ---
PELON IS AXO X4, AWAKE IN BED AND PLEASANT. HE DENIES ANY PAIN AT THIS TIME, BUT WAS OBSERVED SCRATCHING HEAD AND BELLY VIGOROUSLY. SKIN ASSESSMENT REVEALED NO INFESTATION, RASH OR HIVES. PRN BENADRYL ADMINISTERED. BLLE REMAIN PROFOUNDLY NECROTIC. VS ARE WNL AND PELON STATES NO NEEDS AT THIS TIME.
[2023-12-27] VITALS (7 sets, daily range): BP systolic 124–141; BP diastolic 74–87; PULSE 74–81; TEMP 98–98.3
--- NOTE | 2023-12-27 03:44 | NUR ---
PELON KICKED BOTH HEEL BOOTS OFF AGAIN WHILE ASLEEP. FLOATED FEET ON PILLOWS. NO BLEEDING NOTED.
--- NOTE | 2023-12-27 06:35 | NUR ---
PELON SLEPT THROUGH MOST OF THE NIGHT AND HIS RT CALF DRESSING IS CDI. VS ARE WNL AND BLLE ARE SLOUGHING, WEEPING AND STILL PROFOUNDLY NECROTIC.
[2023-12-27 08:08] LABS: CALCIUM 9.4 mg/dL (8.4-10.2); CREATININE, serum 1.25 mg/dL (0.72-1.25); POTASSIUM 4.6 mmol/L (3.5-4.5)
--- NOTE | 2023-12-27 08:45 | NUR ---
patient alert and oriented x3. patient dressing change were changed by wound nurse this morning. patient has fluids running per emar. patient waiting on breakfast this morning. call light within reach. bed at lowest position. patient denies having any concerns.
[2023-12-27] MEDS ORDERED: CIPRO 500MG TA500 MG PO (09:49)
--- NOTE | 2023-12-27 10:55 | NUR ---
office worker faxed discharge orders to [facility] for nursing. Discharge Plan: Home with [facility] and OP PT
--- NOTE | 2023-12-27 13:50 | NUR ---
patient discharge instructions given. patient verbalized understanding. paient iv removed.Patient instructed to call when his ride was ready to be escorted downstairs.
--- NOTE | 2023-12-27 15:43 | NUR ---
Plaster Patternmaker followed on clinical rounds and patient is ready for discharge today. MALINI contacted [facility] and scheduled outpatient PT/OT for 01/04/24 at 1000 and 1100. MALINI also contacted Denita at [facility] and MALINI Lyn faxed discharge orders. MALINI faxed order for walker to [facility] and it was delivered to patient's room. MALINI also collaborated with patient's sister, Trisha who arrived this afternoon to take patient home to his camper.
== END 2023-12-27 14:35 | disposition home health service (06) | DRG 872 ==
LOC: MEDICAL
PROVIDERS: Internal Medicine; Nurse Practitioner; Nurse Practitioner Family; Physician Assistant; ADMIT Internal Medicine
DX: A41.9 Sepsis, unspecified organism (principal); L03.116 Cellulitis of left lower limb; L03.115 Cellulitis of right lower limb; N17.9 Acute kidney failure, unspecified; Z68.41 Body mass index [BMI] 40.0-44.9, adult; L97.929 Non-pressure chronic ulcer of unspecified part of left lower leg with unspecified severity; L97.919 Non-pressure chronic ulcer of unspecified part of right lower leg with unspecified severity; E66.01 Morbid (severe) obesity due to excess calories; Z66 Do not resuscitate; I10 Essential (primary) hypertension; E78.5 Hyperlipidemia, unspecified; F17.210 Nicotine dependence, cigarettes, uncomplicated; R29.6 Repeated falls; S80.822A Blister (nonthermal), left lower leg, initial encounter; S80.821A Blister (nonthermal), right lower leg, initial encounter; E83.52 Hypercalcemia; M17.0 Bilateral primary osteoarthritis of knee; L89.626 Pressure-induced deep tissue damage of left heel; L89.616 Pressure-induced deep tissue damage of right heel; R53.81 Other malaise; I73.9 Peripheral vascular disease, unspecified; B96.89 Other specified bacterial agents as the cause of diseases classified elsewhere; Z79.899 Other long term (current) drug therapy
CPT/HCPCS: J0360; J0692; J1644; J2543; J3370; J7030; J7050; Q3014